=== PATIENT | female | born 1985 | race African-American/Black ===

== ENCOUNTER 2020-07-01 16:21 | Emergency (ER) | payer MEDICAID ==
[~2020-07-01] VITALS: Ht 165.1 cm; Wt 77.1 kg
--- NOTE | 2020-07-01 16:45 | NUR ---
BIBFAMILY TO ER BED 13. AAOX4. NOT IN RESP DISTRESS. BROUGHT IN ON A WHEELCHAIR. CAME INFOR L KNEE PAIN. PT REPORTS THAT SHE WAS PLAYING BASEBALL, RUNNING TOWARDS A BASE AND JAMMED HER LEG CAUSING IT TO HYPEREXTEND. NOTED SWELLING AND PAIN IS RATE 10/10. ROM IS LIMITED D/T PAIN. NO DEFORMITY NOTED. PROVIDER AT THE BEDSIDE FOR EVAL.
--- NOTE | 2020-07-01 18:41 | NUR ---
PATIENT SIGNED WAIVER FORM
[2020-07-01] MEDS ORDERED: HYDROCODONE/APAP 5/325MG TABLET ONE (19:01)
[2020-07-01] MEDS ORDERED: KETOROLAC TROMETHAMINE INJ 30 MG/ML VIAL ONE (19:01)
[2020-07-01] MEDS: HYDROCODONE/APAP 5/325MG TABLET PO ONE (19:08)
[2020-07-01] MEDS: KETOROLAC TROMETHAMINE INJ 60 MG/2 ML VIAL IM ONE (19:08)
--- NOTE | 2020-07-01 19:19 | NUR ---
EMT AT BEDSIDE FOR SPLINTING
--- NOTE | 2020-07-01 19:35 | NUR ---
Patient discharged to home in stable condition. Written and verbal after care instructions given. Patient verbalizes understanding of instruction. Pt was assisted to the car on a wheelchair. Pt transfered with an aide of the crutches.
[2020-07-01 21:02] VITALS: BP 143/89
== END 2020-07-01 19:45 | disposition home or self-care (01) ==
LOC: ER 16:23
DX: S82.142A Displaced bicondylar fracture of left tibia, initial encounter for closed fracture (principal); S82.492A Other fracture of shaft of left fibula, initial encounter for closed fracture; M25.462 Effusion, left knee; M25.062 Hemarthrosis, left knee; X50.1XXA Overexertion from prolonged static or awkward postures, initial encounter; Y93.66 Activity, soccer; Y92.89 Other specified places as the place of occurrence of the external cause; Y99.8 Other external cause status
CPT/HCPCS: 29505; 73564; 96372; 99283; J1885